=== PATIENT | female | born 1980 | race African-American/Black ===

== ENCOUNTER 2018-04-24 11:56 | Emergency (ER) | payer MEDICAID ==
[~2018-04-24] VITALS: Ht 162.6 cm; Wt 72.6 kg
[2018-04-24 11:59] VITALS: BP 132/77
[2018-04-24] MEDS ORDERED: VENTOLIN HFA18 GM INH (12:03)
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
[2018-04-24] MEDS ORDERED: ROBAXIN500 MG PO (12:22)
[2018-04-24] MEDS ORDERED: NAPROXEN500 M2 ORAL (12:22)
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
[2018-04-24 12:39] VITALS: BP 126/85
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
== END 2018-04-24 12:30 | disposition home or self-care (01) ==
LOC: EMR 12:10
DX: S33.5XXA Sprain of ligaments of lumbar spine, initial encounter (principal); V43.62XA Car passenger injured in collision with other type car in traffic accident, initial encounter; Y92.488 Other paved roadways as the place of occurrence of the external cause; F12.90 Cannabis use, unspecified, uncomplicated; Z88.0 Allergy status to penicillin
CPT/HCPCS: 99282